=== PATIENT | female | born 2000 | race Hispanic/Latino ===

== ENCOUNTER 2019-08-26 21:06 | Emergency (ER) | payer SELFPAY ==
[2019-08-26 21:36] LABS: Pregnancy Test - Urine (BHCG) POSITIVE (Negative); Pregu Control Background? CLEAR/WHITE (CLR/WHITE); Pregu Control Bar Appear? YES (CONTROL BAR); Specific Gravity 1.015 (1.002-1.036)
[2019-08-26 21:37] LABS: Bilirubin Negative (Negative); Blood, Urine Moderate (Negative); Clarity Cloudy (Clear); Glucose, Urine (Dipstick) Negative (Negative); Leukocyte Moderate (Negative); Nitrite Negative (Negative); Protein, Urine (Dipstick) 100 mg/dL (Neg-Trace); Urobilinogen 0.2 mg/dL (Less than 2)
[2019-08-26 21:40] LABS: Bacteria/HPF 1+ HPF (None Seen); Squamous Epithelial 0-3 HPF (0-3); WBC/HPF Greater than 50 HPF (0-3)
[2019-08-26] MEDS ORDERED: cefTRIAXone\\ROCEPHIN 1 GM VIAL ONE (22:22)
[2019-08-26] MEDS ORDERED: Lidocaine 1% 20 ML MDV ONE (22:22)
== END 2019-08-26 22:50 | disposition home or self-care (01) ==
LOC: MADERS 21:06
DX: Z33.1 Pregnant state, incidental (principal); N12 Tubulo-interstitial nephritis, not specified as acute or chronic; Z3A.14 14 weeks gestation of pregnancy
CPT/HCPCS: 81003; 81015; 81025; 87077; 87086; 96372; 99283; J0696; J2001

== ENCOUNTER 2020-03-24 14:07 | Outpatient (CLI) | payer OTHER | END 2020-03-24 14:08 | disposition home or self-care (01) | LOC: MADLAB 14:07 | PROVIDERS: ATTEND Family Medicine | DX: Z34.03 Encounter for supervision of normal first pregnancy, third trimester (principal) | CPT/HCPCS: 87081 ==